=== PATIENT | male | born 1965 | race Caucasian/White ===

== ENCOUNTER 2016-12-05 14:08 | Emergency (ER) | payer OTHER, BC ==
[~2016-12-05 14:08] MED LIST: NORVASC2.5 MG PO
[2016-12-05] MEDS ORDERED: AMLODIPINE-BEN1 EAC6 PO (14:45)
[2016-12-05] MEDS ORDERED: AUGMENTIN 875-1 EAC2 PO (16:09)
== END 2016-12-05 17:06 ==
LOC: EDMED 14:08
DX: S61.452A Open bite of left hand, initial encounter (principal); S81.051A Open bite, right knee, initial encounter; I10 Essential (primary) hypertension; Z79.899 Other long term (current) drug therapy; W54.0XXA Bitten by dog, initial encounter; Y92.69 Other specified industrial and construction area as the place of occurrence of the external cause; Y99.0 Civilian activity done for income or pay